=== PATIENT | male | born 1955 ===

== ENCOUNTER 2017-03-31 07:54 | Day surgery (SDC) | payer BC ==
[2017-03-31 08:10] VITALS: BMI 22.3
[2017-03-31] MEDS ORDERED: Lactated Ringer's 1,000 ML IV ONE (09:55)
[2017-03-31] MEDS ORDERED: Propofol 10 mg/ml Inj (20 ML) ONE (10:01)
[2017-03-31 10:36] VITALS: TEMP 96.6
[2017-03-31 11:24] VITALS: BP 114/66; PULSE 91; RESP 20; O2SAT 99
== END 2017-03-31 11:21 | disposition home or self-care (01) ==
LOC: C.ENDO 07:54
PROVIDERS: ATTEND Internal Medicine Gastroenterology
DX: K57.90 Diverticulosis of intestine, part unspecified, without perforation or abscess without bleeding (principal); K64.8 Other hemorrhoids
CPT/HCPCS: 45378; J2704; J7120